=== PATIENT | female | born 1960 | race Caucasian/White ===

== ENCOUNTER → 2020-04-05 07:44 | Outpatient (CLI) | payer OTHER, SELFPAY ==
[2020-04-05 08:26] LABS: Hematocrit 40.5 % (36-46); Hemoglobin 13.6 g/dL (12.0-16.0); Mean Corpuscular HGB Conc 33.5 % (30-36); Mean Corpuscular Hemoglobin 29.7 PG (26-34); Mean Corpuscular Volume 88.7 fL (80-100); Platelet Count 207 X10^3/uL (150-400); Red Blood Cell Count 4.56 X10^6/uL (4.0-5.2); Red Cell Distribution Width 13.1 % (11.6-14.8); White Blood Cell Count 3.2 X10^3/uL (4.5-11.0)
[2020-04-05 08:38] LABS: Alanine Aminotransferase 21 IU/L (<35); Albumin 4.5 g/dL (3.5-5.0); Albumin Globulin Ratio 1.5 (1.0-2.8); Alkaline Phosphatase 81 U/L (38-126); Aspartate Aminotransferase 33 IU/L (14-36); Bilirubin Total 0.7 mg/dL (0.2-1.3); Blood Urea Nitrogen 16 mg/dL (7-17); Calcium 9.4 mg/dL (8.4-10.2); Carbon Dioxide 31 mmol/L (22-32); Chloride 105 mmol/L (98-107); Cholesterol 163 mg/dL (140-199); Estimated Glomerular Filt Rate > 60.0 mL/min (>60); Globulin 3.1 g/dL (1.7-4.1); Glucose 95 mg/dL (70-100); HDL Cholesterol 83 mg/dL (40-60); HEMOLYSIS < 15 (0-50); LDL Cholesterol Calculated 65 mg/dL (<100); Potassium 4.1 mmol/L (3.4-5.1); Sodium 141 mmol/L (137-145); Total Protein 7.6 g/dL (6.3-8.2); Triglycerides 75 mg/dL (35-150)
[2020-04-05 09:09] LABS: TSH w/ Reflex to FT4 2.67 uIU/mL (0.47-4.68)
== END ==
PROVIDERS: PCP Registered Nurse Diabetes Educator; Referring Provider Registered Nurse Diabetes Educator; Visit Provider Registered Nurse Diabetes Educator
DX: Z00.00 Encounter for general adult medical examination without abnormal findings (principal); E55.9 Vitamin D deficiency, unspecified
CPT/HCPCS: 36415; 80053; 80061; 82306; 84443; 85027

== ENCOUNTER → 2020-04-09 11:45 | Outpatient (CLI) | payer OTHER, SELFPAY ==
[2020-04-12 08:36] LABS: Fecal Immunochemical Test Negative (Negative)
== END ==
PROVIDERS: PCP Registered Nurse Diabetes Educator; Referring Provider Registered Nurse Diabetes Educator; Visit Provider Registered Nurse Diabetes Educator
DX: Z12.11 Encounter for screening for malignant neoplasm of colon (principal)
CPT/HCPCS: 82274

== ENCOUNTER → 2022-06-12 11:39 | Outpatient (CLI) | payer OTHER, SELFPAY ==
--- NOTE | 2022-06-12 11:42 | DI.RAD.S_ITS ---
PROCEDURE: XR HIP W PEL IF DONE REGINA MIN 4V INDICATIONS: eval bilateral hip pain TECHNIQUE: AP pelvis with lateral view(s) of the bilateral hip(s). COMPARISON: None. FINDINGS: Bones: No fractures or dislocations. Uugk-[id number]-[id number] bilateral hip joint osteoarthritic changes are seen with superior joint space narrowing and subchondral sclerosis. No evidence of avascular necrosis of femoral head. Pelvic ring appears intact. No suspicious bony lesions. Soft tissues: The visualized bowel gas pattern is normal. No suspicious soft tissue calcifications. IMPRESSION: [id number] bilateral hip joint osteoarthritis. No hip fracture or dislocation. No evidence of avascular necrosis. Dictated by: Umesh Rosales M.D. on 06/12/2022 at 13:48 Approved by: Umesh Rosales M.D. on 06/12/2022 at 13:48
== END ==
PROVIDERS: PCP Registered Nurse Diabetes Educator; Referring Provider Registered Nurse Diabetes Educator; Visit Provider Registered Nurse Diabetes Educator
DX: M25.551 Pain in right hip (principal); M25.552 Pain in left hip; G89.29 Other chronic pain; M16.0 Bilateral primary osteoarthritis of hip
CPT/HCPCS: 73522

== ENCOUNTER → 2023-05-21 07:57 | Outpatient (CLI) | payer OTHER, SELFPAY ==
--- NOTE | 2023-05-21 08:00 | DI.RAD.S_ITS ---
PROCEDURE: XR LUMBAR SPINE 2-3V INDICATIONS: BACK PAIN TECHNIQUE: 3 views of the lumbar spine were acquired. COMPARISON: Merged With [facility], , L-SPINE 2-3 VIEWS, 12/30/2013, 17:51. FINDINGS: Bones: 5 cos-fap-geyqoyc vertebrae are present. Levocurvature of the lumbar spine. Mild grade 1 anterolisthesis of L4 on L5. Mild multilevel degenerative changes. Facet arthropathy of the lower lumbar spine. No vertebral body compression fractures. No suspicious bony lesions. Soft tissues: Overlying bowel gas pattern is normal. No suspicious soft tissue calcifications. IMPRESSION: Redemonstration of levocurvature of the lumbar spine with associated mild degenerative changes. Dictated by: Mason Ramirez M.D. on 05/21/2023 at 9:54 Approved by: Mason Ramirez M.D. on 05/21/2023 at 9:57
[2023-05-21 08:37] LABS: Hematocrit 41.9 % (36-46); Hemoglobin 14.2 g/dL (12.0-16.0); Mean Corpuscular HGB Conc 33.9 % (30-36); Mean Corpuscular Hemoglobin 29.8 PG (26-34); Platelet Count 233 X10^3/uL (150-400); Red Blood Cell Count 4.77 X10^6/uL (4.0-5.2); Red Cell Distribution Width 13.5 % (11.6-14.8); White Blood Cell Count 5.1 X10^3/uL (4.5-11.0)
[2023-05-21 08:58] LABS: Alanine Aminotransferase 24 IU/L (<35); Albumin 4.5 g/dL (3.5-5.0); Albumin Globulin Ratio 1.4 (1.0-2.8); Alkaline Phosphatase 69 U/L (38-126); Aspartate Aminotransferase 37 IU/L (14-36); BUN Creatinine Ratio 18.5 (6-22); Bilirubin Total 1.9 mg/dL (0.2-1.3); Blood Urea Nitrogen 12 mg/dL (7-17); Calcium 9.4 mg/dL (8.4-10.2); Carbon Dioxide 25 mmol/L (22-32); Chloride 107 mmol/L (98-107); Cholesterol 183 mg/dL (140-199); Estimated Glomerular Filt Rate > 60 mL/min (>60); Globulin 3.2 g/dL (1.7-4.1); Glucose 78 mg/dL (80-110); HDL Cholesterol 84 mg/dL (40-60); LDL Cholesterol Calculated 82 mg/dL (<100); Potassium 4.6 mmol/L (3.4-5.1); Sodium 139 mmol/L (137-145); Total Protein 7.7 g/dL (6.3-8.2); Triglycerides 83 mg/dL (35-150)
[2023-05-21 08:59] LABS: HEMOLYSIS 87 (0-50)
[2023-05-21 09:28] LABS: TSH w/ Reflex to FT4 2.12 uIU/mL (0.47-4.68)
== END ==
LOC: LAB 07:58
PROVIDERS: PCP Registered Nurse Diabetes Educator; Referring Provider Registered Nurse Diabetes Educator; Visit Provider Registered Nurse Diabetes Educator
DX: Z00.00 Encounter for general adult medical examination without abnormal findings (principal)
CPT/HCPCS: 36415; 72100; 80053; 80061; 84443; 85027

== ENCOUNTER → 2023-05-22 13:30 | Outpatient (CLI) | payer OTHER, SELFPAY ==
--- NOTE | 2023-05-22 13:32 | DI.RAD.S_ITS ---
PROCEDURE: XR LUMBAR SPINE MIN 4V INDICATIONS: Chronic low back pain despite 6mo PT TECHNIQUE: 5 views of the lumbar spine were acquired, including bilateral oblique views. COMPARISON: [facility], , XR LUMBAR SPINE 2-3V, 05/21/2023, 8:34. FINDINGS: Bones: There are 5 [id number]-mvd-yarumva lumbar vertebral bodies. Left convex scoliosis is redemonstrated. Soft tissues: Overlying bowel gas pattern is normal. No suspicious soft tissue calcifications. Oblique images: No pars defects. IMPRESSION: 1. Left convex scoliosis. 2. No spondylolysis or spondylolisthesis. Dictated by: Vesta Constantino M.D. on 05/22/2023 at 15:32 Approved by: Vesta Constantino M.D. on 05/22/2023 at 15:34
--- NOTE | 2023-05-22 13:32 | DI.RAD.S_ITS ---
PROCEDURE: XR RIBS RT 2V INDICATIONS: eval pain lower anterior ribcage, no trauma TECHNIQUE: 2 views of the ribs were acquired. COMPARISON: None. FINDINGS: Surgical changes and devices: None. Bones and chest wall: No fractures or dislocations. No suspicious bony lesions. Overlying soft tissues appear unremarkable. Lungs and pleura: The visualized lung appears clear. No pleural effusions or pneumothorax are visible. IMPRESSION: No displaced rib fracture. Dictated by: Vesta Constantino M.D. on 05/22/2023 at 15:34 Approved by: Vesta Constantino M.D. on 05/22/2023 at 15:37
--- NOTE | 2023-05-22 13:32 | DI.RAD.S_ITS ---
PROCEDURE: XR THORACIC SPINE 3V INDICATIONS: eval, concern for T12-L1 abnormality TECHNIQUE: 3 views of the thoracic spine were acquired. COMPARISON: None. FINDINGS: Bones: No fractures or dislocations. No suspicious bony lesions. There is 18? right convex scoliosis centered at T9. 12 pairs of ribs are noted, and appear intact where visualized. No segmental anomalies noted. There is mild intervertebral disc space narrowing and osteophytosis. Soft tissues: No paravertebral stripe thickening. IMPRESSION: No acute bony abnormality. Degenerative change. Dextroscoliosis. Dictated by: Vesta Constantino M.D. on 05/22/2023 at 15:37 Approved by: Vesta Constantino M.D. on 05/22/2023 at 15:42
== END ==
PROVIDERS: PCP Registered Nurse Diabetes Educator; Referring Provider Registered Nurse Diabetes Educator; Visit Provider Registered Nurse Diabetes Educator
DX: M47.814 Spondylosis without myelopathy or radiculopathy, thoracic region (principal); M54.9 Dorsalgia, unspecified; R07.81 Pleurodynia; M41.9 Scoliosis, unspecified; M54.50 Low back pain, unspecified; G89.29 Other chronic pain
CPT/HCPCS: 71100; 72072; 72110

== ENCOUNTER → 2023-09-17 07:52 | Outpatient (CLI) | payer OTHER, SELFPAY ==
[2023-09-17 10:09] LABS: Alanine Aminotransferase 22 IU/L (<35); Albumin 4.4 g/dL (3.5-5.0); Albumin Globulin Ratio 1.7 (1.0-2.8); Alkaline Phosphatase 77 U/L (38-126); Aspartate Aminotransferase 30 IU/L (14-36); Bilirubin Total 1.5 mg/dL (0.2-1.3); Bilirubin Unconjugated 1.3 mg/dL (0.0-1.1); Globulin 2.6 g/dL (1.7-4.1); HEMOLYSIS < 15 (0-50)
== END ==
PROVIDERS: PCP Registered Nurse Diabetes Educator; Referring Provider Registered Nurse Diabetes Educator; Visit Provider Registered Nurse Diabetes Educator
DX: R74.8 Abnormal levels of other serum enzymes (principal)
CPT/HCPCS: 36415; 80076

== ENCOUNTER → 2023-12-24 08:32 | Outpatient (CLI) | payer OTHER, SELFPAY ==
[2023-12-24 09:15] LABS: Influenza A - CEPHEID Flu A NEGATIVE (NEGATIVE); Influenza B - CEPHEID Flu B NEGATIVE (NEGATIVE); Respiratory Syncytial Virus Negative (Negative)
[2023-12-24 09:16] LABS: COVID-19 CEPHEID 4-PLEX PCR Negative (Negative)
== END ==
PROVIDERS: PCP Registered Nurse Diabetes Educator; Visit Provider Physician Assistant Surgical
DX: R05.1 Acute cough (principal); R50.9 Fever, unspecified; J34.89 Other specified disorders of nose and nasal sinuses; R51.9 Headache, unspecified; J32.4 Chronic pansinusitis
CPT/HCPCS: 0241U